=== PATIENT | male | born 1990 | race Hispanic/Latino ===

== ENCOUNTER 2022-05-31 14:45 | Emergency (ER) | payer OTHER ==
[~2022-05-31] VITALS: Ht 167.6 cm; Wt 61.2 kg
[2022-05-31] MEDS ORDERED: IBUPROFEN 600 MG TAB PO STA (15:01)
[2022-05-31] MEDS ORDERED: IBUPROFEN600 MG PO (15:59)
== END 2022-05-31 16:05 | disposition home or self-care (01) ==
LOC: ER 15:00
DX: S63.592A Other specified sprain of left wrist, initial encounter (principal); W20.8XXA Other cause of strike by thrown, projected or falling object, initial encounter; Y99.0 Civilian activity done for income or pay
CPT/HCPCS: 99283